=== PATIENT | female | born 1960 | race Caucasian/White ===

== ENCOUNTER → 2017-09-06 | Outpatient (CLI) | payer OTHER ==
--- NOTE | 2017-09-08 10:53 | MM ---
Reason for exam: screening (asymptomatic). Last mammogram was performed 1 year and 5 months ago. History: Patient is postmenopausal. Physical Findings: A clinical breast exam by your physician is recommended on an annual basis and results should be correlated with mammographic findings. MG Screening Mammo w CAD Bilateral CC and MLO view(s) were taken. Prior study comparison: April 20, 2016, bilateral MG 3d screening mammo w/cad. August 30, 2005, bilateral screening mammogram w/CAD. The breast tissue is heterogeneously dense. This may lower the sensitivity of mammography. No suspicious abnormality. No significant changes when compared with prior studies. ASSESSMENT: Negative, BI-RAD 1 RECOMMENDATION: Routine screening mammogram of both breasts in 1 year.
== END | disposition home or self-care (01) ==
LOC: RADMAMWWP 16:01
PROVIDERS: ATTEND Internal Medicine
DX: Z12.31 Encounter for screening mammogram for malignant neoplasm of breast (principal)
CPT/HCPCS: 77067

== ENCOUNTER 2019-03-24 18:05 | Emergency (ER) | payer BC, OTHER ==
[2019-03-24 18:22] VITALS: BP 136/67; PULSE 68; RESP 16; TEMP 98.1
[2019-03-24] MEDS ORDERED: LIDOCAINE 1% INJ 10MG/ML (20 ML MDV) SQ ONE (18:25)
[2019-03-24] MEDS ORDERED: DIPH,PERTUS(ACELL)TETVAC-LF 0.5 ML VIAL IM ONE (18:25)
[2019-03-24] MEDS ORDERED: GELATIN SPONGE,ABSORB (LARGE) 1 EACH SPONGE TOPICAL STA (18:28)
--- NOTE | 2019-03-24 18:41 | ED ---
Wound/Laceration HPI - General Source: patient Mode of arrival: ambulatory Limitations: no limitations <Rose Marie Angel - Last Filed: 03/24/19 22:07> <Elli Monreal - Last Filed: 03/27/19 00:06> - General Chief Complaint: Wound/Laceration Stated Complaint: finger lac Time Seen by Provider: 03/24/19 18:25 - History of Present Illness Initial Comments: 58yo female presents emergency department for chief complaint of right third knuckle skin avulsion. She states while using a paint scraper she scraped her knuckle .Patient states it occured at 12pm today. She states she cannot get the bleeding to stop and that is why she presented to ther ER. Remaining ROS (-) Denies any limitations in ROM, deep laceration, strength or sensation deficits. No anticoagulation use (Rose Marie Angel) - Related Data Home Medications Medication Instructions Recorded Confirmed Biotin 5 mg PO BID 11/11/13 02/06/16 PHENobarbital 180 mg PO DAILY 11/11/13 02/06/16 Allergies Allergy/AdvReac Type Severity Reaction Status Date / Time No Known Allergies Allergy Verified 03/24/19 18:22 Review of Systems ROS Other: All systems not noted in ROS Statement are negative. <Rose Marie Angel - Last Filed: 03/24/19 22:07> ROS Other: All systems not noted in ROS Statement are negative. <Elli Monreal - Last Filed: 03/27/19 00:06> ROS Statement: Those systems with pertinent positive or pertinent negative responses have been documented in the HPI. Past Medical History Past Medical History: Seizure Disorder History of Any Multi-Drug Resistant Organisms: None Reported Additional Past Surgical History / Comment(s): wisdom teeth Past Psychological History: No Psychological Hx Reported Smoking Status: Never smoker Past Alcohol Use History: None Reported Past Drug Use History: None Reported <Rose Marie Angel - Last Filed: 03/24/19 22:07> General Exam Limitations: no limitations <Rose Marie Angel - Last Filed: 03/24/19 22:07> - General Exam Comments Initial Comments: General: The patient is awake and alert, in no distress, and does not appear acutely ill. Eye: Pupils are equal, round and reactive to light, extra-ocular movements are intact. No nystagmus. There is normal conjunctiva bilaterally. No signs of icterus. Ears, nose, mouth and throat: There are moist mucous membranes and no oral lesions. Cardiovascular: There is a regular rate and rhythm. No murmur, rub or gallop is appreciated. Respiratory: Lungs are clear to auscultation, respirations are non-labored, breath sounds are equal. No wheezes, stridor, rales, or rhonchi. Musculoskeletal: Normal ROM, no tenderness. Strength 5/5. Sensation intact. Pulses equal bilaterally 2+. Neurological: A&O x 3. CN II-XII intact grossly, There are no obvious motor or sensory deficits. Coordination appears grossly intact. Speech is normal. Skin: Skin is warm and dry and no rashes. Superifical skin avulsion of third digits of dorsal aspect of PIP joint. No exposure of underlying structures. No limitations MCP, PIP and DIP joints full strength. Light bleeding. No identifiable vessels. Psychiatric: Cooperative, appropriate mood & affect, normal judgment. (Rose Marie Angel) Course Vital Signs 03/24/19 18:20 Temperature 98.1 F Pulse Rate 68 Respiratory 16 Rate Blood Pressure 136/67 O2 Sat by Pulse 98 Oximetry Medical Decision Making <Rose Marie Angel - Last Filed: 03/24/19 22:07> <Elli Monreal - Last Filed: 03/27/19 00:06> - Medical Decision Making 58-year-old female presented for bleeding skin avulsion. No anticoagulation use. Very superficial skin avulsion over the PIP joint of the third digit the right hand. Pressure and Gelfoam was applied. Bleeding controlled. Pressure Bandage also applied. Wound care was discussed as well as removal of Gelfoam. Return parameters discussed patient discharged appearing well. Discussed case with Dr. Monreal (Rose Marie Angel) I was available for consultation in the emergency department. The history and physical exam were done by the midlevel provider. I was consulted for this patients care. I reviewed the case with the midlevel provider and based on their presentation of the patient, I agree with the assessment, medical decision making and plan of care as documented. Chart was dictated using [employer] dictation software. Attempts were made to correct any dictation errors however some typographical errors may persist. (Elli Monreal) Disposition Is patient prescribed a controlled substance at d/c from ED?: No Time of Disposition: 18:48 <Rose Marie Angel - Last Filed: 03/24/19 22:07> <Elli Monreal - Last Filed: 03/27/19 00:06> Clinical Impression: Skin avulsion Disposition: HOME SELF-CARE Condition: Good Instructions (If sedation given, give patient instructions): Skin Avulsion (ED) Additional Instructions: Please use medication as discussed. Please follow-up with family doctor in the next 2 days. Please return to emergency room if the symptoms increase or worsen or for any other concerns, swelling of finger, redness, drainage.. Referrals: Lalo Epps DO [Primary Care Provider] - 1-2 days
== END 2019-03-24 19:04 | disposition home or self-care (01) ==
LOC: EC 18:05
DX: S61.202A Unspecified open wound of right middle finger without damage to nail, initial encounter (principal); G40.909 Epilepsy, unspecified, not intractable, without status epilepticus; Z23 Encounter for immunization; Z79.899 Other long term (current) drug therapy; X58.XXXA Exposure to other specified factors, initial encounter; Y93.89 Activity, other specified
CPT/HCPCS: 90471; 90715; 99283

== ENCOUNTER → 2020-01-10 | Outpatient (CLI) | payer BC ==
--- NOTE | 2020-01-12 20:58 | MR ---
EXAMINATION TYPE: MR knee LT wo con DATE OF EXAM: 01/10/2020 COMPARISON: Radiograph 08/30/2019 HISTORY: 59-year-old female Left knee pain TECHNIQUE: Multiplanar, multisequence imaging of the left knee is performed without IV contrast. FINDINGS: ACL, PCL, MCL, and LCL complex are intact. There appears to be a tiny 4 mm parameniscal cyst peripherally at the junction of the posterior horn and body of the medial meniscus. Refer to sagittal image 26. The anterior horn is somewhat diminutive on sagittal series and a partial tear here is difficult to e xclude. Degenerative signal posterior horn of the lateral meniscus without discrete tear. Along the medial compartment, there is moderate irregular cartilage loss along the anterior weightbea ring aspect of the tibial plateau articular surface with subchondral cystic change and reactive marro w signal changes. Minimal superficial cartilage irregularity along the mid weightbearing aspect of the lateral compartm ent. Additional superficial cartilage irregularity along the posterior weightbearing aspect of the la teral femoral condyle. There is moderate diffuse thinning of medial and lateral patellar facet articular cartilage and mild irregular cartilage loss throughout the trochlear facets. Extensor mechanism appears intact. Nonspecific anterior soft tissue swelling. Some edema within the s uprapatellar fat pad. Physiologic joint fluid. No significant Ricks's cyst. 1.7 cm ganglion cyst at the origin of the media l head gastrocnemius. Normal popliteal artery anatomy and muscle bulk. No suspicious bone marrow replacement. IMPRESSION: 1. Small tear at the periphery of the medial meniscus at the junction of the posterior horn and body with an associated 4 mm parameniscal cyst. 2. Diminutive appearance of the anterior horn medial meniscus could represent a small partial tear. M oderate focal osteoarthritic change along the anterior weightbearing aspect of the medial compartment with cartilage loss and reactive subchondral marrow edema. 3. Degenerative signal throughout the posterior horn of the lateral meniscus without discrete tear. 4. Mild to moderate overall patellofemoral compartmental osteoarthrosis. 5. Some edema within the suprapatellar fat pad. Findings may be seen in the setting of fat pad imping ement syndrome. Clinically correlate.
== END | disposition home or self-care (01) ==
LOC: RADMRIMAIN 11:40
PROVIDERS: ATTEND Orthopaedic Surgery
DX: S83.222A Peripheral tear of medial meniscus, current injury, left knee, initial encounter (principal); M25.862 Other specified joint disorders, left knee; M17.12 Unilateral primary osteoarthritis, left knee

== ENCOUNTER → 2020-04-03 | Outpatient (CLI) | payer BC ==
--- NOTE | 2020-04-03 09:23 | US ---
EXAMINATION TYPE: US gallbladder DATE OF EXAM: 04/03/2020 COMPARISON: NONE CLINICAL HISTORY: R79.9 Abnormal labs. EXAM MEASUREMENTS: Liver Length: 15.1 cm Gallbladder Wall: 0.2 cm CBD: 0.5 cm Right Kidney: 10.5 x 3.9 x 5.0 cm Pancreas: limited views, partially obscured by bowel gas Liver: Increased attenuation Gallbladder: wnl Evidence for sonographic Donis's sign: no CBD: wnl Right Kidney: wnl as seen, lower pole obscured by overlying bowel gas IMPRESSION: 1. No acute abnormality by ultrasound.
== END | disposition home or self-care (01) ==
LOC: RADUSWWP 08:03
PROVIDERS: ATTEND Family Medicine
DX: R79.9 Abnormal finding of blood chemistry, unspecified (principal)
CPT/HCPCS: 76705

== ENCOUNTER → 2021-03-26 | Outpatient (CLI) | payer BC ==
--- NOTE | 2021-03-30 10:21 | MM ---
Reason for exam: screening (asymptomatic). Last mammogram was performed 3 years and 7 months ago. History: Patient is postmenopausal. Physical Findings: A clinical breast exam by your physician is recommended on an annual basis and results should be correlated with mammographic findings. MG Screening Mammo w CAD Bilateral CC and MLO view(s) were taken. Prior study comparison: September 06, 2017, bilateral MG screening mammo w CAD. April 20, 2016, bilateral MG 3d screening mammo w/cad. There are scattered fibroglandular densities. No significant changes when compared with prior studies. ASSESSMENT: Benign, BI-RAD 2 RECOMMENDATION: Routine screening mammogram of both breasts in 1 year.
== END | disposition home or self-care (01) ==
LOC: RADMAMWWP 15:12
PROVIDERS: ATTEND Family Medicine
DX: Z12.31 Encounter for screening mammogram for malignant neoplasm of breast (principal)
CPT/HCPCS: 77067

== ENCOUNTER → 2022-05-26 | Outpatient (CLI) | payer BC ==
--- NOTE | 2022-05-26 13:14 | XR ---
EXAMINATION TYPE: XR lumbar spine 2 or 3V DATE OF EXAM: 05/26/2022 CLINICAL HISTORY: pain TECHNIQUE: Three views of the lumbar spine are submitted. COMPARISON: None. FINDINGS: There are 5 lumbar type vertebral bodies identified. Mild curvature convex to the left. Partial lumb arization of S1. Grade 1 anterolisthesis L5 on S1 of 4 mm. The lumbar spine shows satisfactory alignm ent without evidence of acute fracture or dislocation. Vertebral body heights are within normal limit s. Mild multilevel degenerative disc space narrowing. Facet joint arthropathy. The overlying soft tissue appears unremarkable. IMPRESSION: Degenerative changes as noted.
== END | disposition home or self-care (01) ==
LOC: RADXRMAIN 12:51
PROVIDERS: ATTEND Nurse Practitioner Family
DX: M47.816 Spondylosis without myelopathy or radiculopathy, lumbar region (principal)
CPT/HCPCS: 72100

== ENCOUNTER → 2022-12-30 | Outpatient (CLI) | payer BC ==
--- NOTE | 2023-01-02 08:13 | MM ---
Reason for Exam: Screening (asymptomatic). Last mammogram was performed 1 year(s) and 9 month(s) ago. Patient History: Menarche at age 11. First Full-Term at age 25. Postmenopausal. Risk Values: Vibha 5 year model risk: 1.4%. NCI Lifetime model risk: 7.2%. Prior Study Comparison: 04/20/2016 Bilateral Screening Mammogram, [facility]. 09/06/2017 Bilateral Screening Mammogram, [facility]. 03/26/2021 Bilateral Screening Mammogram, [facility]. Tissue Density: The breast tissue is heterogeneously dense. This may lower the sensitivity of mammography. Findings: Analyzed By CAD. There is no suspicious group of microcalcifications or new suspicious mass in either breast. Overall Assessment: Benign, BI-RAD 2 Management: Screening Mammogram of both breasts in 1 year. . Patient should continue monthly self-breast exams. A clinical breast exam by your physician is recommended on an annual basis. This exam should not preclude additional follow-up of suspicious palpable abnormalities. Note on Vibha scores and lifetime risk: 1. A Vibha score greater than 3% is considered moderate risk. If this is the case, consider specialist referral to assess eligibility for a risk reducing agent. 2. If overall lifetime risk for the development of breast cancer is 20% or higher, the patient may qualify for future screening with alternating mammogram and breast MRI. Electronically signed and approved by: Umang Rodríguez M.D. Radiologis
== END | disposition home or self-care (01) ==
LOC: RADMAMWWP 13:39
PROVIDERS: ATTEND Family Medicine
DX: Z12.31 Encounter for screening mammogram for malignant neoplasm of breast (principal); Z78.0 Asymptomatic menopausal state
CPT/HCPCS: 77063; 77067

== ENCOUNTER → 2023-07-31 | Outpatient (CLI) | payer BC ==
--- NOTE | 2023-08-01 08:15 | XR ---
EXAMINATION TYPE: XR knee complete RT DATE OF EXAM: 07/31/2023 3:58 PM CLINICAL INDICATION:Female, 62 years old with history of M25.561 PAIN IN RIGHT KNEE; [facility] COMPARISON: None. TECHNIQUE: XR knee complete RT; examined in Frontal, lateral and oblique projections. FINDINGS: No evidence of any acute osseous pathology, soft tissue swelling, or joint effusion is no svetlana. Tricompartmental osteophyte formation involving the femoral condyles, tibial plateau and patella . Mild joint space narrowing. IMPRESSION: 1. No acute osseous pathology. 2. Mild tricompartmental osteoarthritic changes.
== END | disposition home or self-care (01) ==
LOC: RADXRMAIN 15:33
PROVIDERS: ATTEND Family Medicine
DX: M17.11 Unilateral primary osteoarthritis, right knee (principal)

== ENCOUNTER → 2023-10-05 | Outpatient (CLI) | payer BC ==
--- NOTE | 2023-10-05 12:05 | CA ---
Transthoracic Echo Report Name: Lynette Floyd Age: 62 Gender: F : 1960 Exam Date: 10/05/2023 10:45 Exam Location: [facility] Ht (in): 69 Wt (lb): 265 Ordering Physician: Washington Fernandez MD Attending/Referring Phys: Elizabeth Umana [facility] [employer] Guide Joanne Douglas RDCS Procedure CPT: Indications: R94.31 ABNORMAL ELECTROCARDIOGRAM [ECG] [EKG] Cardiac Hx: Technical Quality: Fair Contrast 1: Total Dose (mL): Contrast 2: Total Dose (mL): MEASUREMENTS (Male / Female) Normal Values 2D ECHO LV Diastolic Diameter PLAX 4.1 cm 4.2 - 5.9 / 3.9 - 5.3 cm LV Systolic Diameter PLAX 2.1 cm IVS Diastolic Thickness 1.1 cm 0.6 - 1.0 / 0.6 - 0.9 cm LVPW Diastolic Thickness 1.2 cm 0.6 - 1.0 / 0.6 - 0.9 cm LV Relative Wall Thickness 0.6 RV Internal Dim ED PLAX 3.6 cm LA Volume 49.1 cm??? 18 - 58 / 22 - 52 cm??? LA Volume Index 19.9 cm???/m??? 16 - 28 cm???/m??? M-MODE Aortic Root Diameter MM 3.1 cm LA Systolic Diameter MM 4.0 cm LA Ao Ratio MM 1.3 AV Cusp Separation MM 2.0 cm DOPPLER AV Peak Velocity 121.5 cm/s AV Peak Gradient 5.9 mmHg AV Mean Velocity 88.7 cm/s AV Mean Gradient 3.4 mmHg AV Velocity Time Integral 30.7 cm LVOT Peak Velocity 96.0 cm/s LVOT Peak Gradient 3.7 mmHg LVOT Velocity Time Integral 21.4 cm MV Area PHT 3.3 cm??? Mitral E Point Velocity 89.9 cm/s Mitral A Point Velocity 63.1 cm/s Mitral E to A Ratio 1.4 MV Deceleration Time 230.3 ms MV E' Velocity 5.1 cm/s Mitral E to MV E' Ratio 17.5 TR Peak Velocity 193.7 cm/s TR Peak Gradient 15.0 mmHg Right Ventricular Systolic Press 19.2 mmHg FINDINGS Left Ventricle Mildly increased left ventricular wall thickness. Left ventricular cavity size normal. Normal left ventricular systolic function with no obvious regional wall motion abnormalities. Left ventricular ejection fraction is estimated at 55-60 %. Grade 1 diastolic dysfunction. Right Ventricle Mild right ventricular dilatation. Right ventricular systolic pressure within normal limits. No Rv strain. Right Atrium Normal right atrial size. Left Atrium Normal left atrial size. Mitral Valve Structurally normal mitral valve. Mild mitral annular calcification. Mild mitral regurgitation. Aortic Valve Trileaflet aortic valve. No aortic valve stenosis or regurgitation. Tricuspid Valve Structurally normal tricuspid valve. Mild tricuspid regurgitation. Pulmonic Valve Structurally normal pulmonic valve. Pericardium No pericardial effusion. Aorta Normal size aortic root and proximal ascending aorta. CONCLUSIONS Normal LV function Mild mitral regurgitation Previewed by: Dr. Dean Knott MD (Electronically Signed) Final Date: 05 October 2023 12:04
--- NOTE | 2023-10-05 12:17 | CA ---
Stress Echo Report Lynette Floyd Age: 62 Gender: F : 1960 Exam Date: 10/05/2023 11:45 Exam Location: [facility] Ht (in): 69 Wt (lb): 255 Ordering Physician: Washington Fernandez MD Referring Physician: Elizabeth Umana [facility] Locomotive Pipe Fitter: Joanne Douglas RDCS Technologist Procedure CPT: Indication: R94.31 ABNORMAL ELECTROCARDIOGRAM [ECG] [EKG] ICD-9 Codes: Rhythm: Patient History: CHEST PAIN, DIFFICULTY IN BREATHING, PALPITATIONS, HTN, FAMILY HX OF HEART DISEASE Cardiac Medications: Medications in past 24 hours: Contrast: Stress Results Protocol: Alan Total dose(mL): Exercise Duration (min:sec): 5:[address] Depression (mm): Angina Score: Valentine Score: METS: 7.1 Resting HR: 70 Resting BP: 131 / 56 Peak HR: 127 Peak BP: 193 / 45 Max Predicted HR: 160 79 % Max Predicted HR Target HR: 136 Double Product: [id number] Stress Summary: BP Response: Reason for Termination: MAX EXERTION Cardiac Symptoms: DIFFICULTY IN BREATHING ECG Analysis Resting ECG: Normal sinus rhythm normal axis poor R-wave progression Stress ECG: Patient exercised on Alan protocol for 5 and half minutes achieving 85% of predicted maximal heart rate without chest pain at peak exercise patient developed rest bundle branch block that gradually recovered into recovery. Arrhythmia: Echo Analysis Resting Echo: Left ventricular is mildly dilated with normal LV function and wall motion. Peak Echo Analysis: There is hyperdynamic response to exercise and wall motion. MEASUREMENTS (Male/Female) Normal Values CONCLUSIONS Limited exercise tolerance Inconclusive EKG part of the stress test due to left bundle branch block at peak exercise No exercise induced wall motion abnormalities Dr. Dean Knott MD (Electronically Signed) Final Date: 05 October 2023 12:16
== END | disposition home or self-care (01) ==
LOC: RADNMMAIN 10:31
PROVIDERS: ATTEND Family Medicine
DX: I34.0 Nonrheumatic mitral (valve) insufficiency (principal); I44.7 Left bundle-branch block, unspecified; I10 Essential (primary) hypertension; R07.9 Chest pain, unspecified; R06.02 Shortness of breath; R00.2 Palpitations; R94.31 Abnormal electrocardiogram [ECG] [EKG]; Z82.49 Family history of ischemic heart disease and other diseases of the circulatory system
CPT/HCPCS: 93306; 93351

== ENCOUNTER → 2024-03-29 | Outpatient (CLI) | payer BC ==
--- NOTE | 2024-04-01 08:04 | XR ---
EXAM TYPE: LUMBAR SPINE X RAY SERIES COMPARISON: NONE HISTORY: Back pain TECHNIQUE: 4 views are submitted. FINDINGS: Grade 1 anterolisthesis lumbosacral joint. Facet arthropathy. Multilevel degenerative disc disease. F oraminal encroachment lower lumbar spine suspected. Generalized osteopenia. IMPRESSION: 1. Multilevel [id number] degenerative disc disease with facet arthropathy and grade 1 anterior listhesis of lower lumbar spine. Suspect foraminal encroachment. Consider follow-up MRI. [facility], , 04/01/2024 8:02 AM
== END | disposition home or self-care (01) ==
LOC: RADXRMAIN 16:09
PROVIDERS: ATTEND Family Medicine
CPT/HCPCS: 72110

== ENCOUNTER → 2024-05-14 | Outpatient (CLI) | payer BC ==
--- NOTE | 2024-05-14 11:05 | MR ---
EXAMINATION TYPE: MR lumbar spine wo/w con DATE OF EXAM: 05/14/2024 COMPARISON: X-ray 03/29/2020 CLINICAL INDICATION: Female, 63 years old with history of M54.42 LUMBAGO WITH SCIATICA, LEFT PHH, SCI ATICA PAIN X2 MONTHS - PAIN TRAVELS DOWN PT'S LEFT LEG TECHNIQUE: T1 and T2 axial and sagittal images of the lumbar spine are submitted. IV Contrast: 12ML cc Gadobutrol (None if empty) FINDINGS: Correlate with the numbering system utilized on today's exam prior to any surgical interven tion. There is no abnormal signal seen within the visualized spinal cord or paraspinal soft tissues. At L1-2 there is a disc herniation or canal stenosis. No foraminal encroachment. No canal stenosis. At L2-3 there is no disc herniation, canal stenosis, or foraminal encroachment. At L3-4 there is vertebral body hemangioma at L3. There is advanced facet arthropathy but no canal st enosis or disc herniation. No foraminal encroachment. At L4-5 there is grade 1 anterior listhesis. Advanced facet arthropathy. No significant foraminal enc roachment. No disc herniation or canal stenosis. At L5-S1 there is facet arthropathy. No evidence of canal stenosis. Neural foramina patent. IMPRESSION: 1. Grade 1 anterolisthesis L4-L5 with advanced facet arthropathy. 2. No evidence of disc herniation or canal stenosis. No significant foraminal encroachment. 3. Additional multilevel facet arthropathy. [facility], , 05/14/2024 11:03 AM
--- NOTE | 2024-05-14 11:14 | XR ---
EXAMINATION TYPE: XR Hip Complete LT DATE OF EXAM: 05/14/2024 COMPARISON: NONE CLINICAL INDICATION: Female, 63 years old with history of M54.42 LUMBAGO WITH SCIATICA, LEFT; TECHNIQUE: 2 views submitted FINDINGS: There is no evidence of erosive change or acute fracture. Moderate to severe hypertrophic arthropathy of the left hip. SI joint hypertrophic arthropathy. Tiny spur involving the greater trochanter. Ther e is a deformity of the femoral head and early osteonecrosis in the differential diagnosis. IMPRESSION: 1. Suspect there may be osteonecrosis of the femoral head. Recommend MRI. 2. Moderate to severe hypertrophic hip arthropathy. Correlate for femoral acetabular impingement. [facility], , 05/14/2024 11:11 AM
== END | disposition home or self-care (01) ==
LOC: RADMRIMAIN 09:47
PROVIDERS: ATTEND Family Medicine
DX: M51.16 Intervertebral disc disorders with radiculopathy, lumbar region (principal); M47.26 Other spondylosis with radiculopathy, lumbar region; M25.552 Pain in left hip
CPT/HCPCS: 73502; 72158; A9585

== ENCOUNTER → 2024-06-10 | Outpatient (CLI) | payer BC ==
--- NOTE | 2024-06-17 22:56 | MR ---
EXAMINATION TYPE: MR hip LT wo/w con DATE OF EXAM: 06/10/2024 7:06 PM COMPARISON: Left hip x-rays May 14, 2024 CLINICAL INDICATION: Female, 63 years old with history of M87.859 OSTEONECROSIS, Left hip pain, swell ing, clicking x 4-6 weeks, limited mobility due to pain IV Contrast: 12 cc Gadobutrol (None if empty) CONTRAST: Standard multiplanar, multisequence MRI departmental protocol images were obtained without contrast a nd with 12 mL intravenous Gadobutrol gadolinium contrast. FINDINGS: Moderate to severe axial joint space loss in both hips with moderate acetabular spurring is seen. Confirmation of loss of spherical shape to the left femoral head with serpiginous diminished T 1 signal superiorly and small bony fragment seen sagittal image 25 measuring 10 x 5 mm. Marked increa sed T2 signal through the femoral head and femoral neck with asymmetric moderate size joint effusion. Surrounding deep subcutaneous edema is noted. Heterogeneous enhancement through the femoral head and neck also seen. Edema bilaterally at the greater trochanter level consistent with insertional tendin osis. No groin hernia or adenopathy is seen. Muscle bulk is maintained bilaterally. Anteverted uterus with central nonsimple fluid or less likely endometrial thickening. No free fluid i n the pelvis. Urinary bladder appears unremarkable. No abnormal bowel dilatation. IMPRESSION: Moderate to advanced degenerative change in both hips. Insertional tendinosis greater tro chanter level bilaterally. Asymmetric advanced left-sided avascular necrosis also noted as detailed a nando. [facility], , 06/17/2024 10:54 PM
== END | disposition home or self-care (01) ==
LOC: RADMRIMAIN 17:57
PROVIDERS: ATTEND Family Medicine
DX: M16.0 Bilateral primary osteoarthritis of hip (principal); M87.852 Other osteonecrosis, left femur
CPT/HCPCS: 73723; A9585

== ENCOUNTER → 2024-07-05 | Outpatient (CLI) | payer BC ==
[2024-07-05 09:59] LABS: Partial Thromboplastin Time 23.8 sec (22.0-30.0); Prothrombin Time 10.7 sec (10.0-12.5)
[2024-07-05 15:31] LABS: ALT 40 U/L (8-44); AST 36 U/L (13-35); Albumin 4.3 g/dL (3.8-4.9); Albumin/Globulin Ratio 2.15 Ratio (1.60-3.17); Alkaline Phosphatase 199 U/L (41-126); BUN/Creat Ratio 38.83 Ratio (12.00-20.00); Blood Urea Nitrogen 23.3 mg/dL (9.0-27.0); Calcium 9.7 mg/dL (8.7-10.3); Carbon Dioxide 26.2 mmol/L (21.6-31.8); Chloride 103 mmol/L (96-109); Glucose 106 mg/dL (70-110); Potassium 4.1 mmol/L (3.5-5.5); Sodium 144 mmol/L (135-145); Total Bilirubin 0.3 mg/dL (0.3-1.2); Total Protein 6.3 g/dL (6.2-8.2)
[2024-07-05 16:52] LABS: HCT 41.1 % (37.2-46.3); HGB 12.9 g/dL (12.0-15.0); MCH 29.5 pg (27.0-32.0); MCHC 31.4 g/dL (32.0-37.0); MCV 93.8 FL (80.0-97.0); Mean Platelet Volume 11.5 FL (9.5-12.2); NRBC Per 100 WBC 0 X 10*3/uL (0.00-0.01); Platelet Count 247 X 10*3/uL (140-440); RBC 4.38 X 10*6/uL (4.10-5.20); RDW 14.3 % (11.5-14.5); WBC 5.53 X 10*3/uL (4.50-10.00)
== END | disposition home or self-care (01) ==
LOC: LABWHC1 08:22
PROVIDERS: ATTEND Orthopaedic Surgery
DX: Z01.818 Encounter for other preprocedural examination (principal); Z22.322 Carrier or suspected carrier of Methicillin resistant Staphylococcus aureus; M16.12 Unilateral primary osteoarthritis, left hip
CPT/HCPCS: 36415; 80053; 85027; 85610; 85730; 93005

== ENCOUNTER → 2024-07-12 | Outpatient (CLI) | payer BC | END | disposition home or self-care (01) | LOC: LABPAT 11:38 | PROVIDERS: ATTEND Orthopaedic Surgery | DX: Z01.818 Encounter for other preprocedural examination (principal); Z22.322 Carrier or suspected carrier of Methicillin resistant Staphylococcus aureus; M16.12 Unilateral primary osteoarthritis, left hip | CPT/HCPCS: 86850; 86900; 86901; 87070 ==

== ENCOUNTER → 2024-07-15 | Outpatient (CLI) | payer BC ==
[2024-07-15 15:12] LABS: Basophils # (A) 0.07 X 10*3/uL (0.00-0.10); Eosinophils # (A) 0.21 X 10*3/uL (0.04-0.35); Eosinophils % (A) 3.1 %; HCT 42.4 % (37.2-46.3); HGB 13.7 g/dL (12.0-15.0); Lymphocytes # (A) 2.29 X 10*3/uL (0.90-5.00); Lymphocytes % (A) 33.9 %; MCH 29.3 pg (27.0-32.0); MCHC 32.3 g/dL (32.0-37.0); MCV 90.6 FL (80.0-97.0); Mean Platelet Volume 11.2 FL (9.5-12.2); Monocytes # (A) 0.45 X 10*3/uL (0.20-1.00); Monocytes % (A) 6.7 %; NRBC Per 100 WBC 0 X 10*3/uL (0.00-0.01); Neutrophils # (A) 3.73 X 10*3/uL (1.80-7.70); Neutrophils % (A) 55.2 %; Platelet Count 251 X 10*3/uL (140-440); RBC 4.68 X 10*6/uL (4.10-5.20); RDW 13.5 % (11.5-14.5); WBC 6.76 X 10*3/uL (4.50-10.00)
[2024-07-15 15:30] LABS: Chol/HDL Ratio 3.09 Ratio; LDL Cholesterol,Calculated 127.3 mg/dL (0.0-131.0); Uric Acid 8.1 mg/dL (2.9-7.7)
[2024-07-15 15:45] LABS: ALT 32 U/L (8-44); AST 32 U/L (13-35); Albumin 4.4 g/dL (3.8-4.9); Alkaline Phosphatase 205 U/L (41-126); BUN/Creat Ratio 35.71 Ratio (12.00-20.00); Calcium 10.2 mg/dL (8.7-10.3); Globulin 2.2 g/dL (1.6-3.3); Glucose 96 mg/dL (70-110); Total Bilirubin 0.4 mg/dL (0.3-1.2); Total Protein 6.6 g/dL (6.2-8.2)
[2024-07-15 16:05] LABS: Chloride 101 mmol/L (96-109); Potassium 4.1 mmol/L (3.5-5.5); Sodium 142 mmol/L (135-145)
== END | disposition home or self-care (01) ==
LOC: LABWHC1 07:59
PROVIDERS: ATTEND Nurse Practitioner Family
DX: E78.5 Hyperlipidemia, unspecified (principal); E79.0 Hyperuricemia without signs of inflammatory arthritis and tophaceous disease; G40.909 Epilepsy, unspecified, not intractable, without status epilepticus; R73.03 Prediabetes
CPT/HCPCS: 36415; 80053; 80061; 80184; 83036; 84443; 84550; 85025

== ENCOUNTER 2024-07-23 07:33 | Day surgery (SDC) | payer BC ==
[~2024-07-23 07:33] MED LIST: HYDROmorphone 0.5 MG/0.5 ML SYRINGE IVP PRN; TRANEXAMIC 1,000 MG/100ML-NACL 1,000 MG in SALINE 1 100ML.BAG IVPB PRN
[2024-07-23] MEDS: IV FLUID CONTINUATION 1,000 ML IV ONE ×2 (08:06→10:17)
[2024-07-23] MEDS: MELOXICAM 7.5 MG TAB PO PRN (08:27)
[2024-07-23] MEDS: ACETAMINOPHEN TAB 500 MG TAB PO PRN (08:27)
[2024-07-23] MEDS: GABAPENTIN 300 MG CAP PO PRN (08:27)
[2024-07-23] MEDS: LACTATED RINGERS 1,000 ML IV SCH (08:28)
[2024-07-23] MEDS: DEXAMETHASONE SOD PHOSPHATE 4 MG/ML 1 ML VIAL IV ONE (08:28)
[2024-07-23] MEDS: ONDANSETRON 4 MG/2 ML VIAL IVP ONE (08:28)
[2024-07-23] MEDS: MIDAZOLAM 2 MG/2 ML VIAL IV ONE (08:30)
--- NOTE | 2024-07-23 08:45 | P.ANPRN ---
Procedure Note - Anesthesia - Nerve Block Performed Left Joshua Single Date of Procedure: 07/23/24 Procedure Start Time: 08:28 Procedure Stop Time: 08:39 Indication: Analgesia, Requested by Surgeon Sedation Type: Sedate with meaningful contact maintained Preparation: Sterile Prep Position: Supine Needle Types: Pajunk Needle Gauge: 21 Ultrasound used to visualize needle placement: Yes Ultrasound used to observe medication spread: Yes Injectate: 0.5% Ropivacaine (see comment for volume) (10 mls + 10 mls of NS+ 4 mg of Decadron) Blood Aspirated: No Pain Paresthesia on Injection Noted: No Resistance on Injection: Normal Image Stored and Saved: Yes Events: Uneventful and Well Tolerated
[2024-07-23] MEDS ORDERED: HYDROmorphone 0.5 MG/0.5 ML SYRINGE IVP PRN (08:46)
[2024-07-23] MEDS ORDERED: HYDROmorphone 1 MG/ML 1 ML SYRINGE IVP PRN (08:46)
[2024-07-23] MEDS ORDERED: NALOXONE 0.4 MG/ML 1 ML VIAL IV PRN (08:46)
[2024-07-23] MEDS ORDERED: ONDANSETRON 4 MG/2 ML VIAL IVP PRN (08:46)
[2024-07-23] MEDS ORDERED: MAGNESIUM HYDROXIDE 2,400 MG/30 ML CUP PO PRN (08:46)
[2024-07-23] MEDS ORDERED: HYDROcodone/APAP 7.5-325MG 1 EACH TAB PO PRN (08:48)
[2024-07-23] MEDS ORDERED: DEXAMETHASONE SOD PHOSPHATE 4 MG/ML 1 ML VIAL ONE (08:53)
[2024-07-23] MEDS ORDERED: PROPOFOL 10 MG/ML 20 ML VIAL IV ONE (08:53)
[2024-07-23] MEDS ORDERED: MIDAZOLAM 2 MG/2 ML VIAL ONE (08:53)
[2024-07-23] MEDS ORDERED: ROPIVACAINE 5 MG/ML 30 ML VIAL ONE (08:53)
[2024-07-23] MEDS ORDERED: TRANEXAMIC 1,000 MG/100ML-NACL PREMIX BAG ONE (08:53)
[2024-07-23] MEDS ORDERED: SODIUM CHLORIDE 0.9% (PF) 10 ML VIAL ONE (08:53)
[2024-07-23] MEDS ORDERED: fentaNYL (PF) 50 MCG/ML 2 ML AMP ONE (08:53)
[2024-07-23] MEDS ORDERED: PHENYLEPHRINE-0.9% NACL SYG 1,000 MCG/10 ML SYRINGE ONE (08:53)
[2024-07-23] MEDS: ceFAZolin 3 GM in SODIUM CHLORIDE 0.9% 100 ML IVPB PRN (08:58)
[2024-07-23] MEDS: ROPIVACAINE 5 MG/ML 30 ML VIAL MISCELLANE ONE ×2 (09:34→10:11)
--- NOTE | 2024-07-23 10:21 | P.OP ---
Date of Procedure: 07/23/24 Preoperative Diagnosis: Severe osteoarthritis left hip Postoperative Diagnosis: Severe osteoarthritis left hip Procedure(s) Performed: Left total hip arthroplasty with a direct anterior approach Implants: Koch [employer] Nephew Polarstem standard size 4 with a collar [employer] Nephew R3, 3 hole hemispherical acetabular shell, 52 mm Koch [employer] Nephew Reflection 6.5 mm cancellus screws, 20 mm, 15 mm Koch [employer] Nephew R3, XLPE 20 acetabular liner [employer] Nephew Oxinium femoral head 36 mm, +8 All components were press-fit. The articulation is Oxinium on polyethylene. Anesthesia: spinal Surgeon: Warren Felix Bowling Ball Engraver #1: Leslye Russ Estimated Blood Loss (ml): 500 Pathology: none sent Condition: stable Disposition: PACU Indications for Procedure: After failure of conservative treatment we discussed the surgical and non surgical treatment options at length. Patient wishes to proceed with a total hip arthroplasty with a direct anterior approach. Complications specific to this procedure were discussed at length, including but not limited to infection, leg length discrepancy, dislocation, nerve injury, and fracture. Covid-19 was also discussed at length with the patient, and they are aware of the current policies and procedures. The patient was given the option of delaying surgery, but they elect to proceed knowing these risks. Patient is aware of all these complications and informed consent was obtained Operative Findings: The operative findings are consistent with severe osteoarthritis of the left hip Description of Procedure: The patient was seen and evaluated in the preoperative area and the consent was reviewed. The operative site was marked with a skin marker. The patient verified the procedure and operative site. A MIRI block was placed by anesthesia in the preoperative area. The patient was then brought to the operating room and given preoperative antibiotics intravenously. 1 g of Tranexamic acid was also given intravenously. A spinal anesthetic was administered by the anesthesia department. The patient was then placed on the Van Orin table with the bony prominences well-padded. The hip area was then prepped with a ChloraPrep solution and draped in the usual sterile fashion. A universal timeout was then performed, which confirmed the patient's name, surgical site, ALLERGIES, and procedure being performed on the consent. Next the incision site was located at 1 cm distal and 4 cm lateral to the anterior superior iliac spine. The skin and subcutaneous tissues were sharply incised. Incision was carefully dissected down to the fascia overlying the tensor fascia hema muscle. This fascia was then incised in line with the muscle fibers. Care was taken to stay laterally in order to avoid injuring the lateral femoral cutaneous nerve. Next, using blunt finger dissection, the tensor fascia hema muscle was dissected off its investing fascia. The muscle was then carefully retracted laterally with a cobra retractor over the lateral neck of the femur. Next, the circumflex vessels were identified and cauterized using the Aquamantis device. The anterior hip capsule was then exposed. The capsule was then opened and an inverted T fashion. The retractors were then placed intracapsularly. The retractors were maintained intracapsular throughout the procedure. The proximal femur was then visualized. Fluoroscopic x-rays were then taken in order to evaluate the preoperative leg lengths. A small amount of traction was placed on the leg. The femoral neck was then osteotomized at the appropriate level above the lesser trochanter. A small wedge of bone was then removed from the remaining femoral head. Next, using a corkscrew the femoral head was removed from the acetabulum. On gross visual inspection, the femoral head had complete loss of articular cartilage and multiple periarticular osteophytes. The femoral head was then measured. Attention was then turned to the acetabulum. The acetabulum was exposed and any remaining labrum was excised. Sequential reaming of the acetabulum was performed using fluoroscopic guidance until there was a good bed of bleeding cancellus bone. When the appropriate size was reached, a trial was then placed. The position and fit of the trial was checked with fluoroscopy. The trial was then removed. Then, using fluoroscopic guidance, the final implant was impacted at 20 of anteversion and 40 of abduction, and fully seated in the acetabulum. 2 screws were then placed in the acetabulum. Again fluoroscopy was used to check position of the screws. Next, the liner was then impacted, with a 20 elevated liner located in the anterior superior quadrant. Component locking was confirmed. Attention was then directed to the femur. With the aid of the Van Orin table, the femur was externally rotated to approximately 130, extended, and adducted under the opposite leg. A side hook was then placed under the proximal femur, and the side hook elevator was used to elevate the proximal femur while releasing the capsule. Retractors were then placed. A capsular release was performed, as well as a release of the conjoined tendon, which afforded excellent visualization of the proximal femur. Next, a box osteotome was used to lateralize the proximal femur. A clock and watch hands painter was then used to locate the femoral canal. Sequential broaching was then performed with appropriate size which afforded excellent fixation in the proximal femur. A trial was then placed with appropriate head and neck, and the hip was gently reduced with the aid of the Van Orin table. Fluoroscopy was then used to check position of the components, as well as to evaluate the leg lengths and offset. The leg lengths and offset were measured as closely as possible to ensure stability of the hip. The hip was then gently dislocated and the trials were then removed. Final implants were then impacted and the hip was again reduced. Final fluoroscopic x-rays confirmed that the components were in anatomic position. The leg lengths and offset were measured and were found to coincide with the trial measurements. The hip was also taken through range of motion, and found to be stable. The hip was then copiously irrigated with antibiotic solution with pulsatile lavage. The hip was then irrigated with Irrisept solution. The soft tissues were then injected with a ropivacaine solution. A second dose of 1 g of Tranexamic acid was also given intravenously. The fascia was then closed with 2-0 strata fix suture. The subcutaneous tissue was closed with 3-0 Vicryl. The subcuticular tissue was closed with 3-0 moncryl suture. The skin was then closed with Exofin skin glue. After the glue and dried, and Optifoam silver impregnated dressing was applied. The patient was then transferred to the recovery room in stable condition. The medical support assistant NUPUR Voss was required due to the complexity of surgery, and the need for skilled surgical territory manager for positioning, draping, exposure, retraction, and closure of the wound.
--- NOTE | 2024-07-23 10:48 | XR ---
Fluoroscopy INDICATION: Pain FINDINGS: Fluoroscopy time: 24.9 seconds. Total dose area product (DAP) in uGy*m?, mGy*cm? (or similar): 1.8113 Images obtained: 5. Images document left hip prosthesis placement. IMPRESSION: 1. Documentation of fluoroscopy. [facility], , 07/23/2024 10:45 AM
--- NOTE | 2024-07-23 11:24 | XR ---
EXAMINATION TYPE: XR Hip Limited LT DATE OF EXAM: 07/23/2024 11:19 AM COMPARISON: None. CLINICAL INDICATION: Female, 63 years old with history of STATUS POST HIP SURGERY, ASSESS SURGICAL AL IGNMENT, pain TECHNIQUE: AP view(s) obtained. FINDINGS: Left femoral prosthesis with acetabular component has been placed. No acute fractures are evident. Po stsurgical soft tissue changes are evident. IMPRESSION: 1. No acute fracture post left hip prosthesis placement [facility], , 07/23/2024 11:21 AM
[2024-07-23] MEDS: ASPIRIN 325 MG TAB PO SCH (13:12)
[2024-07-23] MEDS: SODIUM CHLORIDE 0.9% 1,000 ML IV SCH (13:17)
[2024-07-23] MEDS: HYDROmorphone 0.5 MG/0.5 ML SYRINGE IVP PRN (14:27)
[2024-07-23] MEDS: ceFAZolin 3 GM in SODIUM CHLORIDE 0.9% 100 ML IVPB SCH (16:07)
[2024-07-23] MEDS: oxyBUTYnin chloride 5 MG TAB PO SCH (21:05)
[2024-07-23] MEDS: SENNOSIDES-DOCUSATE SODIUM 1 EACH TAB PO SCH (21:05)
[2024-07-23] MEDS: CYCLOBENZAPRINE 5 MG TAB PO SCH (21:05)
[2024-07-23] MEDS: HYDROcodone/APAP 7.5-325MG 1 EACH TAB PO PRN (23:16)
--- NOTE | 2024-07-24 01:07 | CONS ---
CONSULTATION REASON FOR CONSULTATION: Advice regarding hypertension and other medical issues, requested by Orthopedic Surgery. HISTORY OF PRESENT ILLNESS: This is a 63-year-old woman with a past medical history of DJD, hypertension, seizure disorder, underwent left hip joint arthroplasty by Dr. Felix. There is no history of any fever or rigors. No history of headache, loss of consciousness, or seizures at this time. PAST MEDICAL HISTORY: Reviewed include hypertension, history of seizure disorder. Rest of the history and chart are also reviewed. HOME MEDICATIONS: Reviewed include Ditropan, dose and rest of medications reviewed. ALLERGIES: None. FAMILY HISTORY: No history of heart disease or strokes in the family. SOCIAL HISTORY: No history of smoking or alcohol intake. REVIEW OF SYSTEMS: Fourteen-point review of systems is negative except as mentioned earlier. PHYSICAL EXAMINATION: VITAL SIGNS: Pulse 68, blood pressure 143/70, respirations 17. HEENT: Conjunctivae normal. NECK: No JVD. CARDIOVASCULAR: S1, S2. RESPIRATIONS: Breath sounds diminished at the bases. No rhonchi. No crackles. ABDOMEN: Soft. LEGS: No edema. NERVOUS SYSTEM: Nonfocal. LEGS: Status post left hip arthroplasty. LABORATORY DATA: Preop labs are reviewed and acceptable. ASSESSMENT: 1. Status post left hip arthroplasty. 2. Hypertension. 3. History of degenerative joint disease. 4. History of seizure disorder. 5. History of left bundle block in the previous EKG. RECOMMENDATIONS AND DISCUSSION: This is a 63-year-old woman, who presented after surgery, is medically stable. I would recommend to resume the home medications. DVT prophylaxis. Incentive spirometry. We will follow the patient closely. The rest of the recommendations per Orthopedic Surgery. The patient may be asked to follow with primary physician closely after discharge. MMODL / IJN: [id number] /
[2024-07-24 01:33] VITALS: RESP 16
[2024-07-24 07:28] VITALS: BP 117/74; PULSE 70; TEMP 98.3
[2024-07-24] MEDS: MULTIVITAMINS, THERA 1 EACH TAB PO SCH (07:50)
[2024-07-24] MEDS: ASCORBIC ACID 500 MG TAB PO SCH (07:50)
[2024-07-24] MEDS: LORATADINE 10 MG TAB PO SCH (07:50)
[2024-07-24 08:51] LABS: Basophils # (A) 0.06 X 10*3/uL (0.00-0.10); Basophils % (A) 0.6 %; Eosinophils # (A) 0.06 X 10*3/uL (0.04-0.35); Eosinophils % (A) 0.6 %; HCT 34.1 % (37.2-46.3); HGB 10.7 g/dL (12.0-15.0); Lymphocytes % (A) 32.4 %; MCH 29.2 pg (27.0-32.0); MCHC 31.4 g/dL (32.0-37.0); MCV 93.2 FL (80.0-97.0); Mean Platelet Volume 11.4 FL (9.5-12.2); Monocytes # (A) 0.83 X 10*3/uL (0.20-1.00); Monocytes % (A) 8.2 %; NRBC Per 100 WBC 0 X 10*3/uL (0.00-0.01); Neutrophils # (A) 5.89 X 10*3/uL (1.80-7.70); Neutrophils % (A) 57.8 %; Platelet Count 237 X 10*3/uL (140-440); RBC 3.66 X 10*6/uL (4.10-5.20); RDW 13.3 % (11.5-14.5); WBC 10.18 X 10*3/uL (4.50-10.00)
--- NOTE | 2024-07-24 10:20 | P.DS ---
Providers Expected date of discharge: 07/24/24 Attending physician: Warren Felix Consults: 07/23/24 08:46 Consult Physician Routine Consulting Provider: Darwin Short Consult Reason/Comments: medical management Do you want consulting provider notified?: Yes Primary care physician: Washington Fernandez - Discharge Diagnosis(es) (1) Osteoarthritis of left hip Current Visit: Yes Status: Acute (2) S/P total left hip arthroplasty Current Visit: Yes Status: Acute Hospital Course: This is a 63-year-old female with known history of degenerative arthritis of the left hip. The patient presented for evaluation as an outpatient. After discussion and consideration patient elects to proceed with total hip arthroplasty. The patient is seen preoperatively by Dr. Felix and medically cleared for surgery by their primary care physician. Patient is admitted to [facility] on 07/23/2024 for total hip arthroplasty. The procedure is performed without complication or sequelae. The patient is doing well postoperatively. Labs and vital signs are stable on day of discharge. On day of discharge patient's hip incision is healing well. There is minimal erythema. There is no drainage noted at this time. There is minimal soft tissue swelling to the hip and thigh. Patient has full foot and ankle motion without difficulty or pain. Calf is soft and nontender to palpation. Neurovascular status to the left lower extremity is intact. Patient is discharged home in good condition. Please see med rec for accurate list of home medications. Plan - Discharge Summary Discharge Rx Participant: Yes New Discharge Prescriptions: New Aspirin 325 mg PO BID #60 tab Sennosides [Senokot] 2 tab PO DAILY PRN #60 tablet PRN Reason: Constipation HYDROcodone/APAP 7.5-325MG [[place] 7.5-325] 1 - 2 tab PO Q6H PRN #32 tab PRN Reason: Pain No Action PHENobarbital 180 mg PO HS oxyBUTYnin chloride [Ditropan] 5 mg PO BID Docusate [Colace] 100 mg PO DAILY Acetaminophen [Tylenol Extra Strength] 500 mg PO DIRECTED PRN PRN Reason: Pain Naproxen [Naprosyn] 500 mg PO DIRECTED PRN PRN Reason: Pain Cranberry Fruit Extract [Cranberry] 200 mg PO BID hydroCHLOROthiazide [Hydrodiuril] 50 mg PO DAILY Cyclobenzaprine [Flexeril] 5 mg PO BID Cetirizine HCl [Zyrtec] 10 mg PO DAILY Vitamin C/Biotin [Hair, Skin and Nails Chew] 1 tab PO DAILY Multivitamins, Thera [Multivitamin (formulary)] 1 tab PO DAILY Ascorbic Acid [Vitamin C] 1,000 mg PO DAILY Levofloxacin [Levaquin] 750 mg PO DAILY Focus Factor 1 tab PO DAILY Discharge Medication List PHENobarbital 180 mg PO HS 11/11/13 [History] Acetaminophen [Tylenol Extra Strength] 500 mg PO DIRECTED PRN 07/16/24 [ History] Ascorbic Acid [Vitamin C] 1,000 mg PO DAILY 07/16/24 [History] Cetirizine HCl [Zyrtec] 10 mg PO DAILY 07/16/24 [History] Cranberry Fruit Extract [Cranberry] 200 mg PO BID 07/16/24 [History] Cyclobenzaprine [Flexeril] 5 mg PO BID 07/16/24 [History] Docusate [Colace] 100 mg PO DAILY 07/16/24 [History] Focus Factor 1 tab PO DAILY 07/16/24 [History] Levofloxacin [Levaquin] 750 mg PO DAILY 07/16/24 [History] Multivitamins, Thera [Multivitamin (formulary)] 1 tab PO DAILY 07/16/24 [History] Naproxen [Naprosyn] 500 mg PO DIRECTED PRN 07/16/24 [History] Vitamin C/Biotin [Hair, Skin and Nails Chew] 1 tab PO DAILY 07/16/24 [History] hydroCHLOROthiazide [Hydrodiuril] 50 mg PO DAILY 07/16/24 [History] oxyBUTYnin chloride [Ditropan] 5 mg PO BID 07/16/24 [History] Aspirin 325 mg PO BID #60 tab 07/23/24 [Rx] HYDROcodone/APAP 7.5-325MG [[place] 7.5-325] 1 - 2 tab PO Q6H PRN #32 tab 07/23/24 [Rx] Sennosides [Senokot] 2 tab PO DAILY PRN #60 tablet 07/23/24 [Rx] Follow up Appointment(s)/Referral(s): [facility], [NON-STAFF] - 1-2 Days ([facility] will call you to schedule your in home physical therapy visits. ) Warren Felix DO [Doctor of Osteopathic Medicine] - 2 Weeks Activity/Diet/Wound Care/Special Instructions: Weightbearing as tolerated with walker. Leave dressing intact. Dressing may be removed by home care nurse or by patient in 7 days. Then change dressing twice daily until follow up. May shower with initial dressing intact and after removal. If dressing become saturated, please remove. Please take aspirin 325mg twice daily for 30 days to prevent blood clots. Recommend use of compression stockings daily until follow up to help prevent swelling and blood clots. May remove at night before sleeping. [facility] with [facility] 2 weeks and call with any questions or concerns, . Discharge Disposition: HOME WITH HOME HEALTH SERVICES
--- NOTE | 2024-07-24 23:28 | PN ---
PROGRESS NOTE DATE OF SERVICE: 07/24/2024 SUBJECTIVE: This is a 63-year-old woman, who was admitted after left hip arthroplasty, is improving significantly. No chest pain. No palpitation. OBJECTIVE: VITAL SIGNS: Pulse is 70, blood pressure 170/74, respirations 16. CHEST: Clear to auscultation. CARDIOVASCULAR: S1, S2. ABDOMEN: Soft. NERVOUS SYSTEM: Nonfocal. LABORATORY DATA: WBC 10.18. ASSESSMENT: 1. Status post left hip arthroplasty. 2. Increased WBC, possibly reactive. 3. Hypertension. 4. History of degenerative joint disease. 5. History of seizure disorder. RECOMMENDATIONS: Recommend to continue current management. Continue symptomatic treatment. Resume home medications. Rest of the recommendations per Orthopedic Surgery. Follow up with primary physician. MMODL / IJN: [id number] /
== END 2024-07-24 12:47 | disposition home health service (06) ==
LOC: OR 07:33 → 4SSUR 10:41 → OR 07-24 12:47
PROVIDERS: ATTEND Orthopaedic Surgery
DX: M16.12 Unilateral primary osteoarthritis, left hip (principal)
CPT/HCPCS: 27130; 64999 ×2; 97161; 97535; 97166; 85025; 73501; C1776; J2250; J1100; J0690 ×2; J2405; J3010; J2795; J2704; J1171; J2371